=== PATIENT | male | born 1945 | race Caucasian/White ===

== ENCOUNTER → 2016-10-07 | Outpatient (CLI) | payer MEDICARE, BC ==
[~2016-10-07] MED LIST: ACIDOPHILUS1 CAP PO; ALDACTONE25 MG PO; ALLOPURINOL100 MG PO; ASPIRIN81 MG PO; CALCIUM ACETAT667 M1 PO; CARVEDILOL25 MG PO; CATAPRES-TTS 31 EACH TOP; CATAPRES-TTS 31 EACH TRDERM; CATAPRES0.1 MG PO; CELEXA20 MG PO; CELEXA40 MG PO; COLACE100 MG PO; CORDARONE200 MG PO; COUMADIN2 MG PO; COUMADIN5 MG PO; FISH OIL1 GM PO; HYDROCHLOROTHIA50 MG PO; LANTUS100 UNIT/1 SUBCUT; LASIX40 MG PO; LEVEMIR FL100 UNIT/1 SUBCUT; LEVEMIR100 UNIT/1 SUBCUT; LIPITOR40 MG PO; LIPITOR80 MG PO; LISINOPRIL40 MG PO; NORVASC10 MG PO; NOVOLOG100 UNIT/2 SUBCUT; PHOSLO667 MG PO; PRILOSEC20 MG PO; ROCALTROL0.25 MCG PO; ROCALTROL0.5 MCG PO; SODIUM BICARBO650 MG PO; TYLENOL325 M1 PO; ULTRAM50 MG PO; VITAMIN D250000 UNIT PO; VITAMIN D31000 UNI1 PO; WARFARIN SODIUM1 GM PO; ZESTRIL40 MG PO
== END | disposition short-term general hospital (02) ==
LOC: CLCARD 11:03
DX: I42.9 Cardiomyopathy, unspecified (principal); I13.0 Hypertensive heart and chronic kidney disease with heart failure and stage 1 through stage 4 chronic kidney disease, or unspecified chronic kidney disease; N18.3 Chronic kidney disease, stage 3 (moderate); I50.43 Acute on chronic combined systolic (congestive) and diastolic (congestive) heart failure; Z79.01 Long term (current) use of anticoagulants; Z79.899 Other long term (current) drug therapy

== ENCOUNTER 2016-10-09 18:33 | Emergency (ER) | payer MEDICARE, BC ==
[~2016-10-09] VITALS: Ht 193 cm; Wt 161.0 kg
[~2016-10-09 18:33] MED LIST changes: -COUMADIN2 MG PO; -HYDROCHLOROTHIA50 MG PO; -ROCALTROL0.25 MCG PO; -ZESTRIL40 MG PO
[2016-10-09] MEDS ORDERED: CATAPRES-TTS 31 EACH TRDERM (20:54)
[2016-10-09] MEDS ORDERED: COUMADIN2 MG PO (20:56)
[2016-10-09] MEDS ORDERED: ROCALTROL0.25 MCG PO (20:57)
[2016-10-09] MEDS ORDERED: ZESTRIL40 MG PO (21:02)
[2016-10-09] MEDS ORDERED: HYDROCHLOROTHIA50 MG PO (21:03)
== END 2016-10-09 20:55 | disposition short-term general hospital (02) ==
LOC: ER 18:33
DX: I13.0 Hypertensive heart and chronic kidney disease with heart failure and stage 1 through stage 4 chronic kidney disease, or unspecified chronic kidney disease (principal); N18.4 Chronic kidney disease, stage 4 (severe); I50.9 Heart failure, unspecified; R79.89 Other specified abnormal findings of blood chemistry; E66.9 Obesity, unspecified; E11.9 Type 2 diabetes mellitus without complications; E78.5 Hyperlipidemia, unspecified; Z79.899 Other long term (current) drug therapy; Z79.4 Long term (current) use of insulin; Z79.01 Long term (current) use of anticoagulants
CPT/HCPCS: A9270; J0360; J1940

== ENCOUNTER → 2016-10-21 | Outpatient (CLI) | payer MEDICARE, BC ==
[~2016-10-21] MED LIST changes: +COUMADIN2 MG PO; +HYDROCHLOROTHIA50 MG PO; +ROCALTROL0.25 MCG PO; +ZESTRIL40 MG PO
== END | disposition short-term general hospital (02) ==
LOC: CLCARD 09:41
DX: I13.0 Hypertensive heart and chronic kidney disease with heart failure and stage 1 through stage 4 chronic kidney disease, or unspecified chronic kidney disease (principal); I50.42 Chronic combined systolic (congestive) and diastolic (congestive) heart failure; N18.4 Chronic kidney disease, stage 4 (severe)

== ENCOUNTER → 2016-11-25 | Outpatient (CLI) | payer MEDICARE, BC | END | disposition short-term general hospital (02) | LOC: CLCARD 04:56 | DX: I50.42 Chronic combined systolic (congestive) and diastolic (congestive) heart failure (principal); I42.9 Cardiomyopathy, unspecified; I44.2 Atrioventricular block, complete; I48.91 Unspecified atrial fibrillation; I25.10 Atherosclerotic heart disease of native coronary artery without angina pectoris; I13.0 Hypertensive heart and chronic kidney disease with heart failure and stage 1 through stage 4 chronic kidney disease, or unspecified chronic kidney disease; N18.4 Chronic kidney disease, stage 4 (severe); R94.31 Abnormal electrocardiogram [ECG] [EKG]; Z95.0 Presence of cardiac pacemaker ==

== ENCOUNTER → 2017-01-05 | Outpatient (CLI) | payer MEDICARE, BC | END | disposition short-term general hospital (02) | LOC: CLORTH 08:17 | DX: M25.362 Other instability, left knee (principal); Z96.652 Presence of left artificial knee joint ==

== ENCOUNTER → 2017-01-20 | Outpatient (CLI) | payer MEDICARE, BC | END | disposition short-term general hospital (02) | LOC: CLCARD 09:49 | DX: I13.0 Hypertensive heart and chronic kidney disease with heart failure and stage 1 through stage 4 chronic kidney disease, or unspecified chronic kidney disease (principal); I50.42 Chronic combined systolic (congestive) and diastolic (congestive) heart failure; N18.4 Chronic kidney disease, stage 4 (severe); I25.10 Atherosclerotic heart disease of native coronary artery without angina pectoris; I44.2 Atrioventricular block, complete; Z95.0 Presence of cardiac pacemaker ==